=== PATIENT | male | born 1990 | race Caucasian/White ===

== ENCOUNTER 2023-09-10 16:51 | Inpatient (IN) | payer MEDICAID ==
[~2023-09-10] VITALS: Ht 188 cm; Wt 77.3 kg
[~2023-09-10 16:51] MED LIST: CBD PO; LEVA15HF6 PO
[2023-09-10] MEDS: thiamine 100mg/ml 2ml inj. IV ONE (20:17)
[2023-09-10] MEDS: levetiracetam inj 1,000 MG in normal saline 100ml IV soln 100 ML IV ONE (20:21)
[2023-09-10 20:58] LABS: BASOPHILS % (AUTO) 0.2 % (0-1); EOSINOPHILS % (AUTO) 0.2 % (0-6); HEMATOCRIT 40.2 % (42.0-52.0); HEMOGLOBIN 13.1 g/dl (14.0-17.9); LYMPHOCYTES # (AUTO) 1.3 X10'3 (1.1-4.8); LYMPHOCYTES % (AUTO) 7.4 % (21-51); MEAN CORPUSCULAR HEMOGLOBIN 27.1 PG (27.0-31.0); MEAN CORPUSCULAR HGB CONC 32.7 g/dL (33.0-36.5); MEAN CORPUSCULAR VOLUME 82.9 FL (78-98); MONOCYTES # (AUTO) 1.2 X10'3 (0-0.9); NEUTROPHILS # (AUTO) 14.4 X10'3 (1.8-7.7); NEUTROPHILS % (AUTO) 85.2 % (42-75); PLATELET COUNT 252 X10'3 (140-440); RED BLOOD COUNT 4.85 X10'6 (4.70-6.10); RED CELL DISTRIBUTION WIDTH 14.7 % (11.5-14.5); WHITE BLOOD COUNT 16.9 X10'3 (4.5-11.0)
[2023-09-10 21:06] LABS: ALBUMIN 3.9 G/DL (3.4-5.0); ANION GAP 9 (8-16); BLOOD UREA NITROGEN 7 MG/DL (7-18); BUN/CREATININE RATIO 6.7 (10.0-20.0); CALCIUM 8.3 MG/DL (8.5-10.1); CHLORIDE 107 MMOL/L (99-107); CREATININE 1.04 MG/DL (0.60-1.10); ETHANOL < 10 MG/DL (<10); GLUCOSE 93 MG/DL (70-104); POTASSIUM 3.2 MMOL/L (3.5-5.1); SODIUM 143 MMOL/L (135-145); TOTAL CARBON DIOXIDE 26.6 MMOL/L (24-32); eCRCL 112 ML/MIN; eGFR 83 ML/MIN
[2023-09-10] MEDS ORDERED: potassium Cl 40MEQ/1/2NS 520ml 520 ML IV PRN (21:50)
[2023-09-10] MEDS ORDERED: LORazepam 2 mg/ml vial IV PRN (21:50)
[2023-09-10] MEDS ORDERED: mag hydrox/Alum hydrox/simeth 30ml oral suspension PO PRN (21:50)
[2023-09-10] MEDS ORDERED: magnesium 2GM in 50ml NS 50 ML IV PRN (21:50)
[2023-09-10] MEDS ORDERED: magnesium 4gm in 100ml NS 100 ML IV PRN (21:50)
[2023-09-10] MEDS ORDERED: acetaminophen 325mg tablet PO PRN (21:50)
[2023-09-10] MEDS ORDERED: magnesium Cl slow-release 64mg tablet PO PRN (21:50)
[2023-09-10] MEDS ORDERED: magnesium hydroxide 30ml (MOM) UD suspension PO PRN (21:50)
[2023-09-10] MEDS ORDERED: ondansetron/PF 4mg/2ml inj IV PRN (21:50)
[2023-09-10] MEDS ORDERED: potassium Cl 20 mEq SR tablet PO PRN (21:50)
[2023-09-10] MEDS: normal saline 1000ml 1,000 ML IV SCH (22:25)
[2023-09-10 23:12] LABS: URINE AMPHETAMINE SCREEN NEGATIVE (Neg); URINE BARBITUATE SCREEN NEGATIVE (Neg); URINE BENZODIAZEPINES SCREEN POSITIVE (Neg); URINE CANNABINOID SCREEN POSITIVE (Neg); URINE COCAINE SCREEN NEGATIVE (Neg); URINE METHADONE SCREEN NEGATIVE (Neg); URINE OPIATE SCREEN NEGATIVE (Neg); URINE PHENCYCLIDINE SCREEN NEGATIVE (Neg)
[2023-09-11] VITALS (7 sets, daily range): BP systolic 116–140; BP diastolic 81–99; PULSE 72–97; RESP 11–18; TEMP 98.4–99; O2SAT 96–99
[2023-09-11] MEDS: LORazepam 1 MG tablet PO PRN ×2 (01:06→16:50)
[2023-09-11] MEDS: Melatonin 3mg tablet PO SCH (01:54)
[2023-09-11] MEDS: potassium Cl 20 mEq SR tablet PO PRN (06:01)
[2023-09-11 07:32] LABS: BASOPHILS # (AUTO) 0.1 X10'3 (0-0.2); BASOPHILS % (AUTO) 0.5 % (0-1); EOSINOPHILS # (AUTO) 0.2 X10'3 (0-0.9); EOSINOPHILS % (AUTO) 1.9 % (0-6); HEMATOCRIT 38.2 % (42.0-52.0); HEMOGLOBIN 12.5 g/dl (14.0-17.9); LYMPHOCYTES # (AUTO) 1.4 X10'3 (1.1-4.8); MEAN CORPUSCULAR HEMOGLOBIN 27.2 PG (27.0-31.0); MEAN CORPUSCULAR HGB CONC 32.7 g/dL (33.0-36.5); MEAN CORPUSCULAR VOLUME 83.3 FL (78-98); MEAN PLATELET VOLUME 7.3 FL (7.4-10.4); MONOCYTES # (AUTO) 1.2 X10'3 (0-0.9); MONOCYTES % (AUTO) 9.4 % (2-12); NEUTROPHILS # (AUTO) 9.7 X10'3 (1.8-7.7); NEUTROPHILS % (AUTO) 77.2 % (42-75); PLATELET COUNT 228 X10'3 (140-440); RED BLOOD COUNT 4.59 X10'6 (4.70-6.10); RED CELL DISTRIBUTION WIDTH 14.7 % (11.5-14.5); WHITE BLOOD COUNT 12.5 X10'3 (4.5-11.0)
[2023-09-11] MEDS: K and/or MAG REPLACEMENT MC SCH (08:00)
[2023-09-11 08:36] LABS: ALBUMIN 3.4 G/DL (3.4-5.0); ANION GAP 14 (8-16); BLOOD UREA NITROGEN 6 MG/DL (7-18); BUN/CREATININE RATIO 6.7 (10.0-20.0); CALCIUM 8.2 MG/DL (8.5-10.1); CHLORIDE 108 MMOL/L (99-107); GLUCOSE 88 MG/DL (70-104); POTASSIUM 3.3 MMOL/L (3.5-5.1); SODIUM 143 MMOL/L (135-145); TOTAL CARBON DIOXIDE 21.2 MMOL/L (24-32); eCRCL 130 ML/MIN; eGFR > 90 ML/MIN
[2023-09-11] MEDS: levetiracetam inj 1,000 MG in normal saline 100ml IV soln 100 ML IV SCH (09:58)
[2023-09-11] MEDS: enoxaparin 40mg/0.4ml syringe SUBCUT SCH (09:59)
[2023-09-12 06:00] VITALS: BP 132/87; PULSE 90; RESP 12; TEMP 98.2; O2SAT 98
[2023-09-12 06:29] LABS: BASOPHILS # (AUTO) 0.1 X10'3 (0-0.2); HEMOGLOBIN 14.3 g/dl (14.0-17.9); MONOCYTES # (AUTO) 1.3 X10'3 (0-0.9); MONOCYTES % (AUTO) 10.9 % (2-12)
[2023-09-12 06:31] LABS: BASOPHILS % (AUTO) 0.9 % (0-1); EOSINOPHILS # (AUTO) 0.4 X10'3 (0-0.9); EOSINOPHILS % (AUTO) 3.6 % (0-6); HEMATOCRIT 42.6 % (42.0-52.0); LYMPHOCYTES # (AUTO) 2.2 X10'3 (1.1-4.8); LYMPHOCYTES % (AUTO) 18.7 % (21-51); MEAN CORPUSCULAR HGB CONC 33.5 g/dL (33.0-36.5); MEAN CORPUSCULAR VOLUME 83.6 FL (78-98); MEAN PLATELET VOLUME 8.5 FL (7.4-10.4); NEUTROPHILS # (AUTO) 7.9 X10'3 (1.8-7.7); NEUTROPHILS % (AUTO) 65.9 % (42-75); PLATELET COUNT 253 X10'3 (140-440); RED BLOOD COUNT 5.09 X10'6 (4.70-6.10); RED CELL DISTRIBUTION WIDTH 14.8 % (11.5-14.5)
[2023-09-12 06:36] LABS: ALANINE AMINOTRANSFERASE 46 U/L (12-78); ALBUMIN 3.8 G/DL (3.4-5.0); ALKALINE PHOSPHATASE 58 IU/L (46-116); ANION GAP 11 (8-16); ASPARTATE AMINO TRANSFERASE 103 U/L (10-37); BILIRUBIN,TOTAL 0.8 MG/DL (0.1-1.0); BLOOD UREA NITROGEN 10 MG/DL (7-18); BUN/CREATININE RATIO 10.5 (10.0-20.0); CALCIUM 9.1 MG/DL (8.5-10.1); CHLORIDE 105 MMOL/L (99-107); CREATININE 0.95 MG/DL (0.60-1.10); GLUCOSE 88 MG/DL (70-104); SODIUM 138 MMOL/L (135-145); TOTAL CARBON DIOXIDE 22.2 MMOL/L (24-32); TOTAL PROTEIN 7.6 G/DL (6.4-8.2); eCRCL 123 ML/MIN; eGFR > 90 ML/MIN
[2023-09-12 08:00] VITALS: RESP 12; O2SAT 98
[2023-09-12 09:24] LABS: HEMOGLOBIN A1C 5.3 % (4.5-6.2)
[2023-09-12 09:32] LABS: CHOL/HDL RATIO 2.9 (0.00-4.99); CHOLESTEROL 135 MG/DL (0-200); HDL CHOLESTEROL 47 MG/DL (35-60); LDL CHOLESTEROL 73 MG/DL (50-100); TRIGLYCERIDES 105 MG/DL (20-135)
[2023-09-12 10:55] VITALS: BP 136/86; PULSE 93; RESP 19; TEMP 99.5; O2SAT 93
[2023-09-12] MEDS ORDERED: LEVE10002 PO (12:16)
[2023-09-12 14:55] VITALS: BP 144/88; PULSE 91; RESP 14; TEMP 98.4; O2SAT 99
== END 2023-09-12 15:35 | disposition home or self-care (01) | DRG 53 ==
LOC: ER 16:52 → ED HOLD 21:50 → EDBEDREQ 09-11 05:36 → PCU 3S 09-11 07:30
PROVIDERS: ADMIT Surgery Surgical Critical Care; ATTEND Family Medicine
DX: G40.909 Epilepsy, unspecified, not intractable, without status epilepticus (principal); J45.909 Unspecified asthma, uncomplicated; Z87.820 Personal history of traumatic brain injury; Z91.148 Patient's other noncompliance with medication regimen for other reason
CPT/HCPCS: 36415; 70551; 80048; 80053; 80061; 80305; 80320; 83036; 85025; 87081; 96374; 96375; 99285; G0378; J1650; J1953; J3411; J3490; J7030

== ENCOUNTER 2023-09-28 21:48 | Emergency (ER) | payer MEDICAID ==
[~2023-09-28] VITALS: Ht 190.5 cm; Wt 79.5 kg
[~2023-09-28 21:48] MED LIST changes: +LEVE10002 PO
[2023-09-29 02:01] LABS: BASOPHILS # (AUTO) 0.1 X10'3 (0-0.2); BASOPHILS % (AUTO) 0.8 % (0-1); EOSINOPHILS # (AUTO) 0.3 X10'3 (0-0.9); EOSINOPHILS % (AUTO) 4.5 % (0-6); HEMATOCRIT 41.3 % (42.0-52.0); HEMOGLOBIN 13.7 g/dl (14.0-17.9); LYMPHOCYTES # (AUTO) 1.8 X10'3 (1.1-4.8); LYMPHOCYTES % (AUTO) 24.6 % (21-51); MEAN CORPUSCULAR HEMOGLOBIN 27.3 PG (27.0-31.0); MEAN CORPUSCULAR HGB CONC 33.2 g/dL (33.0-36.5); MEAN CORPUSCULAR VOLUME 82.2 FL (78-98); MEAN PLATELET VOLUME 6.7 FL (7.4-10.4); MONOCYTES # (AUTO) 0.6 X10'3 (0-0.9); MONOCYTES % (AUTO) 8.3 % (2-12); NEUTROPHILS # (AUTO) 4.6 X10'3 (1.8-7.7); NEUTROPHILS % (AUTO) 61.8 % (42-75); PLATELET COUNT 376 X10'3 (140-440); RED BLOOD COUNT 5.03 X10'6 (4.70-6.10); RED CELL DISTRIBUTION WIDTH 14.3 % (11.5-14.5); WHITE BLOOD COUNT 7.5 X10'3 (4.5-11.0)
[2023-09-29 02:33] LABS: ANION GAP 9 (8-16); BLOOD UREA NITROGEN 24 MG/DL (7-18); BUN/CREATININE RATIO 22.6 (10.0-20.0); CALCIUM 9.1 MG/DL (8.5-10.1); CHLORIDE 105 MMOL/L (99-107); CREATININE 1.06 MG/DL (0.60-1.10); GLUCOSE 84 MG/DL (70-104); POTASSIUM 3.6 MMOL/L (3.5-5.1); PRO BRAIN NATRIURETIC PEPTIDE < 30 PG/ML (0-125); SODIUM 138 MMOL/L (135-145); TOTAL CARBON DIOXIDE 23.6 MMOL/L (24-32); eCRCL 114 ML/MIN; eGFR 81 ML/MIN
[2023-09-29 02:58] VITALS: BP 108/54; PULSE 65; RESP 14; TEMP 98.5; O2SAT 99
== END 2023-09-29 03:00 | disposition home or self-care (01) ==
LOC: ER 21:48
DX: R00.2 Palpitations (principal); J45.909 Unspecified asthma, uncomplicated
CPT/HCPCS: 36415; 71045; 80048; 83880; 84484; 85025; 93005; 99285

== ENCOUNTER 2024-05-10 06:48 | Emergency (ER) | payer MEDICAID ==
[~2024-05-10] VITALS: Ht 188 cm; Wt 97.7 kg
[2024-05-10 06:52] VITALS: TEMP 98.7
[2024-05-10] MEDS: propofol 10mg/ml 20ml vial IV ONE (07:06)
[2024-05-10] MEDS ORDERED: OXYC-134 PO (07:31)
[2024-05-10] MEDS ORDERED: CEPH-585 PO (07:31)
[2024-05-10 07:45] VITALS: BP 121/95; PULSE 86; RESP 12; O2SAT 100
== END 2024-05-10 07:47 | disposition home or self-care (01) ==
LOC: ER 06:48
DX: S82.841A Displaced bimalleolar fracture of right lower leg, initial encounter for closed fracture (principal); G40.909 Epilepsy, unspecified, not intractable, without status epilepticus; F12.90 Cannabis use, unspecified, uncomplicated; J45.909 Unspecified asthma, uncomplicated; Z88.8 Allergy status to other drugs, medicaments and biological substances; W19.XXXA Unspecified fall, initial encounter; Y93.K1 Activity, walking an animal; Y92.89 Other specified places as the place of occurrence of the external cause; Y99.8 Other external cause status
CPT/HCPCS: 27810; 73610; 96374; 99285; J2704; J7030; 94760; 99152; A4620; A6449

== ENCOUNTER 2024-05-22 06:14 | Day surgery (SDC) | payer MEDICAID ==
[2024-05-20 16:24] LABS: BASOPHILS % (AUTO) 0.5 % (0-1); EOSINOPHILS # (AUTO) 0.2 X10'3 (0-0.9); EOSINOPHILS % (AUTO) 2.2 % (0-6); LYMPHOCYTES # (AUTO) 1.3 X10'3 (1.1-4.8); LYMPHOCYTES % (AUTO) 13.7 % (21-51); MEAN CORPUSCULAR HEMOGLOBIN 28.6 PG (27.0-31.0); MEAN CORPUSCULAR HGB CONC 34.2 g/dL (33.0-36.5); MEAN CORPUSCULAR VOLUME 83.6 FL (78-98); MEAN PLATELET VOLUME 6.5 FL (7.4-10.4); MONOCYTES # (AUTO) 0.8 X10'3 (0-0.9); MONOCYTES % (AUTO) 7.9 % (2-12); NEUTROPHILS # (AUTO) 7.2 X10'3 (1.8-7.7); NEUTROPHILS % (AUTO) 75.7 % (42-75); PRE OP HEMATOCRIT 41.4 % (42.0-52.0); PRE OP HEMOGLOBIN 14.1 g/dL (14.0-17.9); PRE OP PLATELET COUNT 371 X10'3 (140-440); PRE OP WHITE BLOOD COUNT 9.5 10'3 (4.8-10.8); RED BLOOD COUNT 4.95 X10'6 (4.70-6.10); RED CELL DISTRIBUTION WIDTH 14.1 % (11.5-14.5)
[2024-05-20 16:39] LABS: ALBUMIN/GLOBULIN RATIO 1.2 (1.1-1.5); ALKALINE PHOSPHATASE 85 IU/L (46-116); BLOOD UREA NITROGEN 11 MG/DL (7-18); BUN/CREATININE RATIO 11.2 (10.0-20.0); CHLORIDE 103 MMOL/L (99-107); CREATININE 0.98 MG/DL (0.60-1.10); PRE OP ALT 28 U/L (30-65); PRE OP ANION GAP 7 (8-16); PRE OP AST 21 U/L (10-37); PRE OP BILIRUB, TOTAL 0.4 MG/DL (0.0-1.0); PRE OP GLUCOSE 94 MG/DL (70-104); PRE OP POTASSIUM 3.7 MMOL/L (3.4-5.1); PRE OP SODIUM 140 MMOL/L (135-145); TOTAL CARBON DIOXIDE 29.8 MMOL/L (24-32); TOTAL PROTEIN 7.4 G/DL (6.4-8.2); eGFR 89 ML/MIN
[2024-05-21 10:39] LABS: BILIRUBIN,URINE NEGATIVE (Neg); CLARITY,URINE CLEAR (Clear); COLOR,URINE YELLOW (Yellow); GLUCOSE, URINE NEGATIVE (Neg); KETONES,URINE NEGATIVE (Neg); LEUKOCYTE ESTERASE ,URINE NEGATIVE (Neg); NITRITES, URINE NEGATIVE (Neg); OCCULT BLOOD,URINE NEGATIVE (Neg); PROTEIN,URINE NEGATIVE (Neg); UA COLLECTION TYPE NON-SPECIFIED; UROBILINOGEN,URINE 0.2 E.U/dL (0.2-1.0)
[2024-05-22] VITALS (13 sets, daily range): BP systolic 121–142; BP diastolic 68–85; PULSE 70–78; RESP 11–18; TEMP 98.4; O2SAT 92–100
[~2024-05-22] VITALS: Ht 188 cm; Wt 94.8 kg
[2024-05-22] MEDS: ceFAZolin 2gm in dextrose, iso 50 ML IV ONE (05:30)
[~2024-05-22 06:14] MED LIST changes: +BUDE10.22 INH; -CBD PO; +CYCL-1 PO; +LACO50TA6 PO; -LEVA15HF6 PO; -LEVE10002 PO; +MULTIMINERAL; +MULTIVITAMIN; +PHEN100C12 PO
[2024-05-22] MEDS ORDERED: bacitracin 15gm ointment TP ONE (06:59)
[2024-05-22] MEDS ORDERED: BUPIVAcaine 2.5mg/ml inj 50ml vial (contains preservative) ONE (06:59)
[2024-05-22] MEDS: famotidine 20mg tablet PO ONE (07:14)
[2024-05-22] MEDS: ringers solution, lacted 1,000 ML IV SCH (07:15)
[2024-05-22] MEDS ORDERED: sevoflurane 250ml liquid IH ONE (08:26)
[2024-05-22] MEDS ORDERED: BUPIVAcaine 0.5% inj/PF 30 ML ONE (08:28)
[2024-05-22] MEDS ORDERED: BUPIVAcaine/PF 2.5mg/ml (0.25%) 10ml vial ONE (08:29)
[2024-05-22] MEDS ORDERED: BUPIVACAINE liposomal/PF 13.3 MG/ML 10mL vial IM ONE (08:29)
[2024-05-22] MEDS ORDERED: midazolam 1 mg/ML 2ml injection ONE (08:33)
[2024-05-22] MEDS ORDERED: fentaNYL /PF 50mcg/ml 5ml ampule ONE (08:34)
[2024-05-22 08:52] LABS: BILIRUBIN,URINE NEGATIVE (Neg); CLARITY,URINE CLEAR (Clear); COLOR,URINE YELLOW (Yellow); GLUCOSE, URINE NEGATIVE (Neg); KETONES,URINE NEGATIVE (Neg); LEUKOCYTE ESTERASE ,URINE NEGATIVE (Neg); NITRITES, URINE NEGATIVE (Neg); OCCULT BLOOD,URINE NEGATIVE (Neg); PROTEIN,URINE NEGATIVE (Neg); UROBILINOGEN,URINE 0.2 E.U/dL (0.2-1.0)
[2024-05-22] MEDS ORDERED: acetaminophen 1,000mg/100ml IV 100 ML IV ONE (09:07)
[2024-05-22] MEDS ORDERED: propofol inj 20 ML IV ONE (09:08)
[2024-05-22] MEDS ORDERED: LIDOcaine 2% (20mg/ml) 5ml vial ONE (09:08)
[2024-05-22] MEDS ORDERED: ondansetron/PF 4mg/2ml inj ONE (09:08)
[2024-05-22] MEDS: BUPIVAcaine 2.5mg/ml inj 50ml vial (contains preservative) IJ ONE (09:18)
[2024-05-22 09:19] LABS: UA COLLECTION TYPE VOIDED
[2024-05-22] MEDS ORDERED: morphine 2 MG/ML inj. syringe IV PRN (09:40)
[2024-05-22] MEDS ORDERED: morphine 4 MG/ML inj SYRINge IV PRN (09:40)
[2024-05-22] MEDS ORDERED: hydrALAZINE 20mg/ml inj. IV PRN (09:40)
[2024-05-22] MEDS ORDERED: labetalol 20mg/4ml (5mg/ml) syringe IV PRN (09:40)
[2024-05-22] MEDS ORDERED: ringers solution, lacted 1,000 ML IV SCH (09:40)
[2024-05-22] MEDS ORDERED: fentaNYL/PF 50MCG/1 ML 2ML syringe IV PRN ×2 (09:40)
[2024-05-22] MEDS: ondansetron/PF 4mg/2ml inj IV PRN (12:11)
== END 2024-05-22 13:43 | disposition home or self-care (01) ==
LOC: PAS 06:14
PROVIDERS: ATTEND Podiatrist Foot & Ankle Surgery
DX: S82.851A Displaced trimalleolar fracture of right lower leg, initial encounter for closed fracture (principal); S93.431A Sprain of tibiofibular ligament of right ankle, initial encounter; W19.XXXA Unspecified fall, initial encounter; Y93.89 Activity, other specified; Y92.89 Other specified places as the place of occurrence of the external cause; Y99.8 Other external cause status; G89.18 Other acute postprocedural pain; Z79.899 Other long term (current) drug therapy; F12.90 Cannabis use, unspecified, uncomplicated; Z87.820 Personal history of traumatic brain injury; Z98.890 Other specified postprocedural states
CPT/HCPCS: 27822; 27829; 36415; 64445; 64447; 73600; 80053; 81003; 82948; 85025; 93005; A6223; C1713; J0131; J0666; J0690; J1100; J2003; J2250; J2405; J2704; J3010; J3490; J7030; J7120; Z7506; Z7508; Z7512; 76000; A4618; A6253; A6449; A7000

== ENCOUNTER 2024-05-23 03:59 | Emergency (ER) | payer MEDICAID ==
[~2024-05-23] VITALS: Ht 185.4 cm; Wt 97.7 kg
[2024-05-23 04:02] VITALS: TEMP 99.9
[2024-05-23] MEDS: ketorolac trometh 15mg/ml vial 15 MG/ML ML IV ONE (04:13)
[2024-05-23] MEDS: morphine 4 MG/ML inj SYRINge IV ONE (04:13)
[2024-05-23 04:59] VITALS: BP 132/84; PULSE 82; O2SAT 97
[2024-05-23 05:03] VITALS: RESP 16
[2024-05-23] MEDS: oxyCODONE IR 5mg (immed. release) tablet PO ONE (05:03)
== END 2024-05-23 05:07 | disposition home or self-care (01) ==
LOC: ER 04:01
DX: G89.18 Other acute postprocedural pain (principal); M25.571 Pain in right ankle and joints of right foot; J45.909 Unspecified asthma, uncomplicated; F12.90 Cannabis use, unspecified, uncomplicated; Z88.8 Allergy status to other drugs, medicaments and biological substances; Z79.52 Long term (current) use of systemic steroids; Z72.89 Other problems related to lifestyle
CPT/HCPCS: 96374; 96375; 99284; J1885; J2270

== ENCOUNTER 2024-10-09 22:50 | Emergency (ER) | payer MEDICAID ==
[~2024-10-09] VITALS: Ht 188 cm; Wt 80.5 kg
[2024-10-10] MEDS ORDERED: LACO50TA2 PO (00:06)
--- NOTE | 2024-10-10 00:08 | Physician Documentation ---
HPI ~ General Chief Complaint: Medication Request Stated Complaint: MED REQUEST Time Seen by MD: 23:31 Primary Medical Doctor: None History of Present Illness HPI Comments Patient is seen today stating he needs a refill of his lacosamide 50 mg one tab twice a day. He states his last dose was this morning and needs another dose tonight. His script ran out. He denies any chest pain or shortness of breath or abdominal pain or nausea, vomiting, diarrhea. Medication Reconciliation Allergies: Coded Allergies: fluticasone (Verified Allergy, Unknown, 10/09/24) salmeterol (Verified Allergy, Unknown, 10/09/24) Scheduled Budesonide/Formoterol Fumarate (Symbicort 80-4.5 Mcg Inhaler), 1 PUFF INH DAILY, (Reported) Lacosamide (Lacosamide), 1 TAB PO BID, (Reported) Phenytoin Sodium Extended (Phenytoin Sodium Extended), 1 CAP PO HS, (Reported) Scheduled PRN Cyclobenzaprine* (Cyclobenzaprine*), 1 TAB PO HS PRN for muscle spasm, (Reported) Miscellaneous Medications [Multimineral], (Reported) [Multivitamin], (Reported) Past Medical History Past Medical History: Seizures, Asthma Past Surgical History: no surgical history Patient History: FHx: irritable bowel syndrome Alcohol Use: Occasionally Drug Use: marijuana Review of Systems Constitutional: Denies: chills, fever, weakness Eyes: Denies: pain, blurred vision ENT: Denies: ear pain, nose pain, throat pain, mouth pain Respiratory: Denies: cough, shortness of breath Cardiovascular: Denies: chest pain, palpitations Gastrointestinal: Denies: abdominal pain, nausea, vomiting Genitourinary: Denies: burning, dysuria Male Genitalia: Denies: penile discharge, testicular pain Neurological: Denies: headache, dizziness Musculoskeletal: Denies: pain, swelling Integumentary: Denies: rash, lesions Allergic/Immunologic: Denies: hives, itching Hematologic/Lymphatic: Denies: no symptoms reported Psychiatric: Denies: depression, anxiety Physical Exam Physical Exam Vital Signs: Temperature: 97.6, Source: Temporal, Heart Rate: 98, Respiratory Rate: 15, BP: 132/65, Pulse Oximetry: 100, Weight: 80.500 Physical Exam General: Awake and Alert, no acute distress. HEENT: Conjunctiva pink, Sclera clear, Mucus Membranes moist. Neck: Supple without masses and tenderness. Resp: Unlabored. Lungs clear to auscultation bilaterally. Heart: Regular Rate and rhythm, normal S1 and S2 without murmur, rub or gallop. Abdomen: Soft and non tender no organomegaly Extremities: No cyanosis,clubbing or edema. Skin: Warm and Dry. Progress Results/Orders Results/Orders Vital Signs 10/09/24 22:59 Temp 97.6 Pulse 98 Resp 15 B/P (MAP) 132/65 Pulse Ox 100 Medical Decision Making Findings Patient is seen today stating he needs a refill of his lacosamide 50 mg one tab twice a day. He states his last dose was this morning and needs another dose tonight. His script ran out. He denies any chest pain or shortness of breath or abdominal pain or nausea, vomiting, diarrhea. Patient was given dose of lacosamide 50 mg in the ED tonight by mouth. Prescription for lacosamide 50 mg one tab twice a day sent to patient's pharmacy. Patient will follow up with primary care for further refills. Return to ED with any worsening, concerning or changing symptoms. Departure Disposition: HOME / SELF CARE / HOMELESS Impression: Primary Impression: General medical exam Additional Impression: Seizure disorder Condition: Improved Discharge Instructions: Medicine Refill at the Emergency Department Additional Instructions: Patient was given dose of lacosamide 50 mg in the ED tonight by mouth. Prescription for lacosamide 50 mg one tab twice a day sent to patient's pharmacy. Patient will follow up with primary care for further refills. Return to ED with any worsening, concerning or changing symptoms. Referrals: NO PRIMARY CARE PROVIDER (PCP) Prescriptions Lacosamide (Vimpat) 50 Mg Tablet 1 TAB PO Q12H for 14 Days, #28 TAB 0 Refills Prov: ALLEN VELASQUEZ 10/10/24 Signature Scribe Signature: No scribe Attestation: No scribe ALLEN VELASQUEZ Oct 10, 2024 00:07
[2024-10-10] MEDS: LACOSAMIDE 50 MG TABLET PO STA (00:16)
[2024-10-10 00:19] VITALS: BP 120/78; PULSE 86; RESP 10; TEMP 97.6; O2SAT 99
== END 2024-10-10 00:21 | disposition home or self-care (01) ==
LOC: ER 22:50
DX: G40.909 Epilepsy, unspecified, not intractable, without status epilepticus (principal); J45.909 Unspecified asthma, uncomplicated; F12.90 Cannabis use, unspecified, uncomplicated; Z88.8 Allergy status to other drugs, medicaments and biological substances; Z79.899 Other long term (current) drug therapy; Z72.89 Other problems related to lifestyle
CPT/HCPCS: 99283

== ENCOUNTER 2024-12-29 09:29 | Emergency (ER) | payer MEDICAID ==
[~2024-12-29] VITALS: Ht 188 cm; Wt 98.7 kg
[~2024-12-29 09:29] MED LIST changes: +LACO50TA16 PO; +LACO50TA2 PO; -LACO50TA6 PO
[2024-12-29 09:41] VITALS: TEMP 98.5
[2024-12-29 09:48] VITALS: BP 139/95; PULSE 75; RESP 18; O2SAT 99
--- NOTE | 2024-12-29 10:15 | Physician Documentation ---
HPI ~ General Chief Complaint: Medication Request Stated Complaint: MED REQUEST Time Seen by MD: 10:13 Primary Medical Doctor: NONE History of Present Illness HPI Comments This is a 34-year-old male with a history of seizure disorder who reports that he has run out of his lacosamide. He is requesting a refill. He denies any other concerns. Medication Reconciliation Allergies: Coded Allergies: fluticasone (Verified Allergy, Unknown, 10/09/24) salmeterol (Verified Allergy, Unknown, 10/09/24) Scheduled Budesonide/Formoterol Fumarate (Symbicort 80-4.5 Mcg Inhaler), 1 PUFF INH DAILY, (Reported) Lacosamide (Lacosamide), 1 TAB PO BID, (Reported) Lacosamide (Vimpat), 1 TAB PO Q12H Lacosamide (Vimpat), 1 TAB PO Q12H Phenytoin Sodium Extended (Phenytoin Sodium Extended), 1 CAP PO HS, (Reported) Phenytoin Sodium Extended (Phenytoin Sodium Extended), 1 CAP PO Q8H Scheduled PRN Cyclobenzaprine* (Cyclobenzaprine*), 1 TAB PO HS PRN for muscle spasm, (Reported) Miscellaneous Medications [Multimineral], (Reported) [Multivitamin], (Reported) Past Medical History Past Medical History: Seizures, Asthma Past Surgical History: no surgical history Patient History: FHx: irritable bowel syndrome Alcohol Use: Occasionally Drug Use: marijuana Review of Systems ROS As stated above in the HPI, otherwise all systems are reviewed and negative. Physical Exam Physical Exam Vital Signs: Temperature: 98.5, Source: Temporal, Heart Rate: 75, Respiratory Rate: 18, BP: 139/95, Pulse Oximetry: 99, Weight: 98.700 Oxygen Flow Rate: 0 Physical Exam General: Alert, no apparent distress. HEENT: PERRL, EOMI, no injection, moist mucous membranes. Neck: Full range of motion. Respiratory: Lungs clear, no respiratory distress. Chest: No accessory muscle use. Cardiovascular: Regular rate and rhythm, no murmurs. Gastrointestinal: Soft, nontender, nondistended. Bowels sounds present. Extremities: Normal range of motion, no deformity. Neurologic: Oriented x4. Psychiatric: Normal mood and affect. Skin: Normal color, warm and dry. No edema, no ecchymosis. Progress Results/Orders Results/Orders Completed Orders - LIZ GALE NP Lacosamide 50mg Tablet (Vimpat 50mg Tabl (12/29/24 10:30) Phenytoin Sod Er Cap (Dilantin Capsule) (12/29/24 10:30) Lacosamide 50mg Tablet (Vimpat 50mg Tabl (12/29/24 10:30) Medications Received in ER Medications (Trade) Dose Ordered Sig/Saul Route PRN Reason Start Time Stop Time Status Last Admin Dose Admin (Dilantin capsule) 100 mg ONCE ONCE PO 12/29/24 10:30 12/29/24 10:31 DC 12/29/24 10:45 100 MG (VIMPAT 50mg tablet) 100 mg ONCE ONCE PO 12/29/24 10:30 12/29/24 10:32 DC 12/29/24 10:45 100 MG Vital Signs 12/29/24 12/29/24 09:41 09:48 Temp 98.5 Pulse 76 75 Resp 18 18 B/P (MAP) 132/89 139/95 (110) Pulse Ox 98 99 O2 Flow Rate 0 0 Medical Decision Making Differential Dx:Considerations: Include: Adverse circumstances, Economic, Psychosocial, Medical services unavail., Medication refill, Medication non- compliance Departure Time of Disposition: 10:25 Disposition: 01 HOME / SELF CARE / HOMELESS Impression: Primary Impression: Seizure disorder Additional Impression: Medication refill Condition: Stable Discharge Instructions: Medicine Refill at the Emergency Department Additional Instructions: Please see your neurologist soon for further evaluation and medication refill. Return if worse while awaiting this appt. Refills were also sent to your pharmacy. Referrals: NO PRIMARY CARE PROVIDER (PCP) Prescriptions Phenytoin Sodium Extended (Phenytoin Sodium Extended) 100 Mg Capsule 1 CAP PO Q8H for 30 Days, #90 CAP 0 Refills Prov: LIZ GALE NP 12/29/24 Lacosamide (Vimpat) 50 Mg Tablet 1 TAB PO Q12H for 30 Days, #60 TAB 0 Refills Prov: LIZ GALE NP 12/29/24 Education Educated: Patient Educated regarding: diagnosis, treatment, prognosis, need for follow up Signature Scribe Signature: x Attestation: The note accurately reflects work and decisions made by me.Liz Castanon NP 12/29/24 11:17 LIZ GALE NP Dec 29, 2024 10:15
[2024-12-29] MEDS ORDERED: LACO50TA2 PO (10:25)
[2024-12-29] MEDS ORDERED: PHEN50TA4 PO (10:25)
[2024-12-29] MEDS ORDERED: PHEN100C12 PO (10:27)
[2024-12-29] MEDS ORDERED: LACOSAMIDE 50 MG TABLET PO SCH (10:30)
[2024-12-29] MEDS: LACOSAMIDE 50 MG TABLET PO ONE (10:45)
[2024-12-29] MEDS: phenytoin sod ER 100mg capsule PO ONE (10:45)
== END 2024-12-29 10:51 | disposition home or self-care (01) ==
LOC: ER 09:29
DX: G40.909 Epilepsy, unspecified, not intractable, without status epilepticus (principal); Z76.0 Encounter for issue of repeat prescription; F12.90 Cannabis use, unspecified, uncomplicated; J45.909 Unspecified asthma, uncomplicated; Z88.8 Allergy status to other drugs, medicaments and biological substances; Z79.899 Other long term (current) drug therapy; Z72.89 Other problems related to lifestyle
CPT/HCPCS: 99283